=== PATIENT | female | born 1945 | race Caucasian/White ===

== ENCOUNTER 2016-08-14 11:24 | Emergency (ER) | payer OTHER ==
[~2016-08-14] VITALS: Ht 152.4 cm; Wt 78.0 kg
[2016-08-14 11:28] VITALS: Ht 152.4 cm; Wt 78.0 kg
[2016-08-14] MEDS ORDERED: ASPIRIN 324 MG CHEW ONE (11:58)
[2016-08-14 12:02] VITALS: O2SAT 98
[2016-08-14 12:04] LABS: HEMATOCRIT 44.2 % (37-47); MEAN CELL VOLUME 84.4 fL (80-100); MEAN CORPUSCULAR HEMOGLOBIN 28.6 pg (25-34); MEAN CORPUSCULAR HGB CONC 33.9 g/dl (32-36); MEAN PLATELET VOLUME 9.6 fL (7.4-10.4); PLATELET COUNT 308 K/uL (130-400); RED BLOOD COUNT 5.24 M/uL (4.2-5.4); WHITE BLOOD COUNT 8.28 K/uL (4.8-10.8)
--- NOTE | 2016-08-14 12:07 | DIAGNOSTIC IMAGING REPORT ---
SINGLE VIEW CHEST CLINICAL HISTORY: Atypical chest pain. Eructation. FINDINGS: An AP, portable, upright chest radiograph is obtained. No prior studies are available for comparison at the time of dictation. The examination is degraded by portable technique, apical lordotic positioning, and patient rotation. The heart is top normal for projection. The lungs and pleural spaces are clear. No pneumothorax is seen. The skeletal structures are osteopenic. The bony thorax is grossly intact. IMPRESSION: No active disease in the chest. Electronically signed by: Cosme Kern M.D. 08/14/2016 12:05 PM Dictated Date/Time: 08/14/2016 12:04 PM
[2016-08-14] MEDS ORDERED: ASPIRIN 81 MG CHEW PO ONE (12:15)
[2016-08-14] MEDS ORDERED: SODIUM CHLORIDE 0.9% 250ML 250 ML IV SCH (12:15)
[2016-08-14 12:22] LABS: CALCIUM 9.3 mg/dl (8.5-10.1); CREATININE 0.75 mg/dl (0.60-1.20); POTASSIUM 3.8 mmol/L (3.5-5.1)
[2016-08-14] MEDS ORDERED: LIDOCAINE HCL 2% VISC SOLN 20 ML UDC ONE (12:23)
[2016-08-14] MEDS ORDERED: ALUMINUM/MAGNESIUM SUSP 30 ML UDC ONE (12:23)
[2016-08-14] MEDS ORDERED: OMEG10007 PO (12:25)
[2016-08-14] MEDS ORDERED: LEVO50TA PO (12:25)
[2016-08-14] MEDS ORDERED: MULT-506 PO (12:25)
[2016-08-14] MEDS ORDERED: ATOR-22 PO (12:25)
[2016-08-14] MEDS ORDERED: CALC500C50 PO (12:25)
[2016-08-14] MEDS ORDERED: GI COCKTAIL PO STA (12:26)
[2016-08-14 13:04] LABS: THYROID STIMULATING HORMONE 2.88 uIu/ml (0.300-4.500)
[2016-08-14] MEDS ORDERED: PANTOprazole SOD 40 MG TAB PO STA (13:12)
[2016-08-14 14:18] LABS: URINE APPEARANCE CLEAR (CLEAR); URINE BILIRUBIN NEG (NEG); URINE COLOR YELLOW; URINE PH 7.5 (4.5-7.5); URINE SPECIFIC GRAVITY 1.007 (1.000-1.030); ZZUR CULT IF INDIC CLEAN CATCH NO
[2016-08-14 14:19] LABS: URINE EPITHELIAL CELL AUTO 0-5 /lpf (0-5); URINE NITRITE NEG (NEG); UROBILINOGEN NEG (NEG)
[2016-08-14] MEDS ORDERED: PANT40TA PO (14:26)
[2016-08-14 14:30] LABS: MANUAL MICROSCOPIC REQUIRED? NO; REVIEW REQ? NO
[2016-08-14 15:07] VITALS: BP 156/94; PULSE 95; TEMP 37.2; O2SAT 96
--- NOTE | 2016-08-14 16:03 | EMERGENCY ROOM VISIT NOTE ---
History Report prepared by Pérez: Serene Mohamud Under the Supervision of: Dr. Sean Dodd D.O. First contact with patient: 12:26 Chief Complaint: CARDIAC ASSESSMENT Stated Complaint: CHEST PAIN Nursing Triage Summary: chest pain "middle of breast bone, goes thru to the back, woke her thru the night" History of Present Illness The patient is a 71 year old female who presents to the Emergency Room with complaints of intermittent episodes of epigastric pain over the past week. Currently, she denies being in any discomfort as she states that she had relief after given Maalox and aspirin at her PCP office just prior to arrival. Since the time of onset of symptoms, patient states that she has been juan carlos pains to her epigastrium, intermittently throughout the day and and night, but it does not seem to be associated with exertion or change in position. When juan carlos a pain, it does radiate through to her mid back, but she denies radiation of pain to her neck, jaw, or down her arm, and she has not become short of breath, nauseous or diaphoretic. Patient states that she has been belching very frequently, which does seem to provide relief. Upon waking up this morning around 0700, patient's symptoms were exacerbated, so she visited her PCP. Though she had relief of symptoms after given Maalox an aspirin, she was referred to the ED for further evaluation as she was told that her EKG appeared abnormal. She denies recent fevers, chills, light headedness, dizziness , headache, lower abdominal pain, vomiting, diarrhea, urinary symptoms or swelling to her extremities. Patient has a history of GERD, thyroid disease and hyperchloremia. Source of History: patient Onset: over the past week Position: abdomen (epigastrium) Symptom Intensity: no current discomfort Timing: intermittent Modifying Factors (Relieving): other (Maalox, aspirin, belching) Associated Symptoms: + back pain, No SOB, No abdominal pain, No chills, No diaphoresis, No diarrhea, No fevers, No headache, No nausea, No urinary symptoms , No vomiting Note: Patient has been belching frequently. She denies swelling to her extremities. Review of Systems See HPI for pertinent positives & negatives. A total of 10 systems reviewed and were otherwise negative. Past Medical & Surgical Medical Problems: (1) Hypercholesterolemia (2) Thyroid disease Social History Smoking Status: Never Smoker Marital Status: Housing Status: lives with significant other Occupation Status: retired Current/Historical Medications Scheduled Atorvastatin (Lipitor), 20 MG PO HS Calcium Carbonate (Antacid) (Tums), 1 TAB PO DAILY Fish Oil ([place]-3), 1 CAP PO BID Levothyroxine Sodium (Synthroid), 50 MCG PO DAILY Multivitamin (Multivitamin), 1 TAB PO DAILY Pantoprazole (Protonix), 40 MG PO DAILY Allergies Coded Allergies: Miconazole (Unverified Allergy, Severe, RASH, 08/14/16) Physical Exam Vital Signs Date Time Temp Pulse Resp B/P Pulse Ox O2 Delivery O2 Flow Rate FiO2 08/14/16 15:07 37.2 95 12 156/94 96 08/14/16 13:17 95 156/94 96 08/14/16 13:12 94 98 08/14/16 13:07 178/100 08/14/16 13:06 165/95 08/14/16 13:04 94 12 98 08/14/16 12:59 90 17 139/70 96 08/14/16 12:54 94 20 94 08/14/16 12:49 90 18 96 08/14/16 12:44 93 16 97 08/14/16 12:39 98 14 97 08/14/16 12:34 96 14 98 08/14/16 12:29 101 17 97 08/14/16 12:28 174/86 08/14/16 12:24 95 22 98 08/14/16 12:21 105 08/14/16 12:19 93 17 97 08/14/16 12:14 101 14 95 08/14/16 12:09 101 20 95 08/14/16 12:08 170/89 08/14/16 12:02 98 Room Air 08/14/16 12:02 98 Room Air 08/14/16 12:02 37.2 107 18 167/96 98 Room Air 08/14/16 11:28 37.2 107 18 167/96 94 Room Air Physical Exam GENERAL: Patient is awake, alert, and in no acute distress. Patient is resting comfortably and showing no signs of anxiety EYES: The conjunctivae are clear. The pupils are round and reactive. EARS, NOSE, MOUTH AND THROAT: The nose is without any evidence of any deformity. Mucous membranes are moist tongue is midline NECK: The neck is nontender and supple. RESPIRATORY: Normal respiratory effort is noted there is no evidence of wheezing rhonchi or rales CARDIOVASCULAR: Regular rate and rhythm noted there no murmurs rubs or gallops normal S1 normal S2 GASTROINTESTINAL: The abdomen is soft. Bowel sounds are present in all quadrants. Abdomen is nontender MUSCULOSKELETAL/EXTREMITIES: There is no evidence of gross deformity full range of motion is noted in the hips and shoulders SKIN: There is no obvious evidence of any rash. There are no petechiae, pallor or cyanosis noted. NEUROLOGIC: Patient is awake alert and oriented x3. Medical Decision & Procedures ER Provider Diagnostic Interpretation: X-ray results as stated below per interpretation by me and the radiologist. SINGLE VIEW CHEST CLINICAL HISTORY: Atypical chest pain. Eructation. FINDINGS: An AP, portable, upright chest radiograph is obtained. No prior studies are available for comparison at the time of dictation. The examination is degraded by portable technique, apical lordotic positioning, and patient rotation. The heart is top normal for projection. The lungs and pleural spaces are clear. No pneumothorax is seen. The skeletal structures are osteopenic. The bony thorax is grossly intact. IMPRESSION: No active disease in the chest. Electronically signed by: Cosme Kern M.D. 08/14/2016 12:05 PM Dictated Date/Time: 08/14/2016 12:04 PM Laboratory Results 08/14/16 12:00 08/14/16 12:00 Test 08/14/16 11:58 08/14/16 12:00 08/14/16 13:30 Bedside Troponin I 0.000 ng/ml (0-0.045) Red Blood Count 5.24 M/uL (4.2-5.4) Mean Corpuscular Volume 84.4 fL (80-100) Mean Corpuscular Hemoglobin 28.6 pg (25-34) Mean Corpuscular Hemoglobin Concent 33.9 g/dl (32-36) RDW Standard Deviation 43.8 fL (36.4-46.3) RDW Coefficient of Variation 14.1 % (11.5-14.5) Mean Platelet Volume 9.6 fL (7.4-10.4) Anion Gap 11.0 mmol/L (3-11) Est Creatinine Clear Calc Drug Dose 64.5 ml/min Estimated GFR () 93.6 Estimated GFR (Non- 80.8 BUN/Creatinine Ratio 20.0 (10-20) Calcium Level 9.3 mg/dl (8.5-10.1) Total Bilirubin 0.3 mg/dl (0.2-1) Aspartate Amino Transf (AST/SGOT) 17 U/L (15-37) Alanine Aminotransferase (ALT/SGPT) 29 U/L (12-78) Alkaline Phosphatase 85 U/L (45-117) Total Creatine Kinase 69 U/L (26-192) Creatine Kinase MB 0.7 ng/ml (0.5-3.6) Creatine Kinase MB Ratio 1.0 (0-3.0) Total Protein 8.1 gm/dl (6.4-8.2) Albumin 4.0 gm/dl (3.4-5.0) Globulin 4.1 gm/dl (2.5-4.0) Albumin/Globulin Ratio 1.0 (0.9-2) Lipase 163 U/L (73-393) Thyroid Stimulating Hormone (TSH) 2.880 uIu/ml (0.300-4.500) Free Thyroxine 1.30 ng/dl (0.80-1.60) Urine Color YELLOW Urine Appearance CLEAR (CLEAR) Urine pH 7.5 (4.5-7.5) Urine Specific [place] 1.007 (1.000-1.030) Urine Protein NEG (NEG) Urine Glucose (UA) NEG (NEG) Urine Ketones NEG (NEG) Urine Occult Blood NEG (NEG) Urine Nitrite NEG (NEG) Urine Bilirubin NEG (NEG) Urine Urobilinogen NEG (NEG) Urine Leukocyte Esterase TRACE (NEG) Urine WBC (Auto) 0 /hpf (0-5) Urine RBC (Auto) 0-4 /hpf (0-4) Urine Hyaline Casts (Auto) 0 /lpf (0-5) Urine Epithelial Cells (Auto) 0-5 /lpf (0-5) Urine Bacteria (Auto) NEG (NEG) Laboratory results per my review. Medications Administered Medications (Trade) Dose Ordered Sig/Obdulio Route Start Time Stop Time Status Last Admin Dose Admin Aspirin 324 mg 324 mg STK-MED ONCE .ROUTE 08/14/16 11:58 08/14/16 11:59 DC 08/14/16 12:17 324 MG Sodium Chloride (Nss 250ml) 250 ml @ 0 mls/hr Q0M IV 1/12/17 12:15 08/14/16 15:33 DC 08/14/16 12:19 0 MLS/HR Lidocaine HCl (Viscous Lidocaine 2% Soln) 20 ml STK-MED ONCE .ROUTE 08/14/16 12:23 08/14/16 12:25 DC 08/14/16 12:29 20 ML Al Hydroxide/Mg Hydroxide (Maalox Susp) 30 ml STK-MED ONCE .ROUTE 08/14/16 12:23 08/14/16 12:25 DC 08/14/16 12:29 30 ML Pantoprazole Sodium (Protonix Tab) 40 mg NOW STAT PO 08/14/16 13:12 08/14/16 13:13 DC 08/14/16 13:21 40 MG ECG Indication: abdominal pain (epigastric) Rate (beats per minute): 102 Rhythm: sinus tachycardia Findings: Q waves (Inferior), no ectopy, other (No acute ST segment abnormalities.) Change: When compared to EKG from 06/17/10, rate has increased. No other change. ED Course 1226: The patient was evaluated in room C2. A complete history and physical examination were performed. 1158: Aspirin 324 mg Route was ordered. 1215: NSS 250 ml IV and Aspirin 324 mg PO were ordered. 1223: Maalox susp 30 ml Route and Lidocaine HCl 20 ml Route were ordered. 1226: GI Cocktail 24 ml PO was ordered. 1312: Protonix 40 mg PO was ordered. 1500: Upon reevaluation, the patient was doing well and appeared to be resting more comfortably after receiving the medications. I updated her on the results of her radiology reports and lab tests. Discharge instructions were also discussed at this time. She verbalized her understanding and agreement with the treatment plan, and she is now ready for disposition. Medical Decision Differential diagnosis: Etiologies such as cardiac ischemia, aortic dissection, pulmonary embolism, pneumonia, pneumothorax, musculoskeletal, infections, pericarditis, myocarditis , esophageal rupture, gastrointestinal, as well as others were entertained. Previous records from [facility] were also reviewed. The patient is a 71-year-old female to emergency Department with epigastric pain. The patient states the pain was ongoing. She would belch and the pain was relieved. The patient was seen by her primary care physician's office for further evaluation. She was found have EKG abnormalities with Q waves inferiorly. I was able to obtain an old EKG changes do not appear to be new compared to tracing. I discussed the patient's laboratory radiographic studies with her I also discussed the limitations of the emergency department workup for chest pain with her. The patient's EKG was normal despite having ongoing pain. She was treated with aspirin initially by protocol and then given Maalox and Protonix. On subsequent reevaluation she was feeling somewhat better. She did complain of some pain radiating to her back. Her LFTs and lipase were normal. I do feel at this time her condition could be consistent with gastritis. She was encouraged to rest. She was also encouraged to continue all medications as prescribed. Encouraged to return the emergency Department immediately if symptoms change worsen or the need arises otherwise follow-up with her doctor for stress testing and further testing as necessary. Impression Primary Impression: Epigastric pain Scribe Attestation The scribe's documentation has been prepared under my direction and personally reviewed by me in its entirety. I confirm that the note above accurately reflects all work, treatment, procedures, and medical decision making performed by me. Departure Information Dispostion Home / Self-Care Prescriptions Pantoprazole (Protonix) 40 Mg Tab 40 MG PO DAILY, #30 TAB Prov: Sean Dodd, DO 08/14/16 Referrals Jessica Tirado M.D. (PCP) Forms IMPORTANT VISIT INFORMATION Patient Instructions My [facility] Additional Instructions Continue all medications as prescribed. Rest and avoid any strenuous activity. Call your family to schedule a follow-up appointment. You may require other studies such as a stress test to further evaluate the cause of your pain. Return to the emergency department immediately if symptoms change worsen or the need arises. You have been prescribed Protonix. If this medication is not covered by your insurance you could try an [id number] medication that is in the same class. Ask your pharmacist for help if your unsure.
[2016-08-15] MEDS ORDERED: SODIUM CHLORIDE 0.9% 250ML 250 ML IV SCH (12:15)
[2017-01-27] MEDS ORDERED: IBUPROFEN PO (08:28)
== END 2016-08-14 15:08 | disposition home or self-care (01) ==
LOC: C.EDB 11:26 → C.EDC 15:08
DX: R10.13 Epigastric pain (principal); R00.0 Tachycardia, unspecified; K21.9 Gastro-esophageal reflux disease without esophagitis; E78.00 Pure hypercholesterolemia, unspecified; E03.9 Hypothyroidism, unspecified

== ENCOUNTER → 2016-08-28 | Outpatient (CLI) | payer OTHER ==
[~2016-08-28] MED LIST: ACET-24 PO; ASPEC325 PO; ATOR-22 PO; CALC500C50 PO; CLB200 PO; IBUPROFEN PO; LEVO50TA PO; MULT-506 PO; OMEG10007 PO; ONDA8TAB12 PO; OXYSR10 PO; PANT40TA PO; RXC5 PO
[2016-08-28 13:23] LABS: BLOOD UREA NITROGEN 14 mg/dl (7-18); BUN/CREATININE RATIO 18.3 (10-20); CALCIUM 9.1 mg/dl (8.5-10.1); CARBON DIOXIDE 25 mmol/L (21-32); CHLORIDE 105 mmol/L (98-107); CREATININE 0.75 mg/dl (0.60-1.20); GLUCOSE 108 mg/dl (70-99); POTASSIUM 3.5 mmol/L (3.5-5.1); SODIUM 139 mmol/L (136-145)
[2016-08-28 13:45] LABS: ESTIMATED AVERAGE GLUCOSE 128 mg/dl; HA1C FLAG Normal (Normal)
== END | disposition home or self-care (01) ==
LOC: C.LABPBG 10:02
PROVIDERS: ATTEND Family Medicine
DX: Z51.81 Encounter for therapeutic drug level monitoring (principal); Z79.899 Other long term (current) drug therapy; E78.5 Hyperlipidemia, unspecified; I10 Essential (primary) hypertension; Z68.33 Body mass index [BMI] 33.0-33.9, adult; R07.9 Chest pain, unspecified; K29.70 Gastritis, unspecified, without bleeding; K21.0 Gastro-esophageal reflux disease with esophagitis

== ENCOUNTER → 2016-12-31 | Outpatient (CLI) | payer OTHER ==
--- NOTE | 2016-12-31 16:29 | MAMMOGRAPHY REPORT ---
BILATERAL DIGITAL SCREENING MAMMOGRAM WITH CAD: 12/31/2016 CLINICAL HISTORY: Routine screening. Patient has no complaints. TECHNIQUE: Bilateral CC and MLO views were obtained. Current study was also evaluated with a Comput er Aided Detection (CAD) system. COMPARISON: Prior mammograms from [facility] dated 12/18/2011, 12/20/2012, 12/22/2013, 12/02. BREAST COMPOSITION: There are scattered areas of fibroglandular density in both breasts. FINDINGS: There is possible architectural distortion in the 12:00 right breast, that appears somewh at similar in pattern to prior exams. However, further evaluation with spot compression tomosynthes is views and possibly ultrasound are recommended. No other suspicious mass, architectural distortion or cluster of microcalcifications is seen bilater ally. IMPRESSION: ACR BI-RADS CATEGORY 0: INCOMPLETE EVALUATION: NEED ADDITIONAL IMAGING EVALUATION The possible architectural distortion in the 12:00 right breast needs additional imaging evaluation. The patient will be called to schedule an appointment. Approximately 10% of breast cancers are not detected with mammography. A negative mammographic repor t should not delay biopsy if a clinically suggestive mass is present. Haily Piña M.D. ay/:12/31/2016 16:20:56 Buyers' Agent: Mary Jane YEE)(Yasmine), [facility] letter sent: Addl Imaging 0 BI-RADS Code: ACR BI-RADS Category 0: Incomplete Evaluation: Need Additional Imaging Evaluation
== END | disposition home or self-care (01) ==
LOC: C.MAMM 10:13
PROVIDERS: ATTEND Family Medicine
DX: Z12.31 Encounter for screening mammogram for malignant neoplasm of breast (principal)

== ENCOUNTER → 2017-01-07 | Outpatient (CLI) | payer OTHER ==
--- NOTE | 2017-01-07 13:13 | MAMMOGRAPHY REPORT ---
UNILATERAL RIGHT DIGITAL DIAGNOSTIC MAMMOGRAM TOMOSYNTHESIS: 01/07/2017 CLINICAL HISTORY: Callback from screening mammogram for questionable right breast architectural disto rtion. TECHNIQUE: Breast tomosynthesis in addition to standard 2D mammography was performed. Right CC and MLO spot compression 2-D and tomosynthesis images were obtained. COMPARISON: Comparison is made to exams dated: 12/31/2016 mammogram - [facility], mammogram, 12/26/2014 mammogram, 12/22/2013 mammogram, 12/20/2012 mammogram, and 12/18/2011 mamm ogram - [facility]. BREAST COMPOSITION: There are scattered areas of fibroglandular density in the right breast. FINDINGS: The previously described possible architectural distortion in the right 12:00 breast does not persist on the additional views. This region has the appearance of normal fibroglandular tissue on the tomosynthesis images with no suspicious mass or architectural distortion noted. Findings are benign and compatible with normal fibroglandular tissue. IMPRESSION: ACR BI-RADS CATEGORY 2: BENIGN The questionable right breast architectural distortion does not persist on the additional views. Fin dings are benign and compatible with normal fibroglandular tissue. There is no mammographic evidence of malignancy. A 1 year screening mammogram is recommended. The patient has been verbally notified of the results. Approximately 10% of breast cancers are not detected with mammography. A negative mammographic report should not delay biopsy if a clinically suggestive mass is present. June Barnes M.D. /:01/07/2017 11:19:11 Parole Supervisor: Erika MCCARTHY(Arnoldo)(Yasmine), [facility] letter sent: Normal 1/2 BI-RADS Code: ACR BI-RADS Category 2: Benign
== END | disposition home or self-care (01) ==
LOC: C.MAMM 10:47
PROVIDERS: ATTEND Family Medicine
DX: N64.9 Disorder of breast, unspecified (principal)

== ENCOUNTER 2017-02-04 07:33 | Inpatient (IN) | payer OTHER ==
--- NOTE | 2017-01-26 17:33 | HISTORY & PHYSICAL EXAMINATION ---
DATE OF ADMISSION: 02/04/2017 PROCEDURE: Bilateral knee replacements. HISTORY OF PRESENT ILLNESS: The patient is a 71-year-old female who presents for preoperative evaluation prior to bilateral knee replacements. She states she is having pain in both of these knees for several years now, which has gradually worsened, it has now gotten to the point it is affecting her daily activities including walking, standing, going up and down steps. She has tried previous cortisone injections without relief and does ambulate with a cane daily. At this point in time, has failed conservative measures and would like to proceed with bilateral knee replacements. PAST MEDICAL HISTORY: 1. High cholesterol. 2. Hypothyroidism. ALLERGIES: 1. MONISTAT 7 CAUSES RED SPOTS ON BOTH OF HER LEGS. PRESENT MEDICATIONS: 1. Atorvastatin 20 mg daily. 2. Synthroid 0.05 mg daily. 3. Tums. PAST SURGICAL HISTORY: 1. Hysterectomy in 1991. 2. Tubal ligation in 1972. FAMILY HISTORY: Noncontributory. SOCIAL HISTORY: The patient denies a history of smoking or tobacco use. Minimal alcohol consumption. REVIEW OF SYSTEMS: Otherwise negative. Please see HPI for pertinent positives. PHYSICAL EXAMINATION: GENERAL: Pleasant 71-year-old female in no acute distress, alert and oriented x3. She is 5 foot tall, weighs 158 pounds. BMI is 31.25. HEENT: Normocephalic, atraumatic. CARDIAC: Regular rate and rhythm. No murmurs or gallops appreciated. LUNGS: Clear to auscultation. No rales or wheezes bilaterally. ABDOMEN: Soft, nontender. Bowel sounds present. EXTREMITIES: Bilateral lower extremities are neurovascularly intact. Calves are soft and nontender. DP pulse +2. Overall has varus alignment bilaterally. She has positive crepitation with motion, range of motion of the right knee is 0/5/110 and left knee 0/3/115. Both knees are ligamentously stable. IMAGING: Review of both knees show findings consistent with degenerative joint disease including joint space narrowing, subchondral sclerosis, osteophyte formations noted. Has complete loss of joint space of the medial compartment of the right knee on both AP and flexion view as well as complete loss of joint space in the medial compartment of the left knee with flexion views. IMPRESSION: 1. Bilateral knee degenerative joint disease. 2. High cholesterol. 3. Hypothyroidism. PLAN: Further care discussed with patient. At this point in time, has failed conservative measures and would like to proceed with bilateral knee replacements. We will place on aspirin 325 mg 1 tablet p.o. b.i.d. for 1 month postop. We plan on discharge to possible rehab versus nursing home facility pending insurance. Otherwise, there is no other questions or concerns.
[2017-01-27 08:29] VITALS: BMI 31.0
--- NOTE | 2017-01-27 09:03 | PAT Medication Instructions ---
Service Date Jan 27, 2017. Current Home Medication List Atorvastatin (Lipitor), 20 MG PO HS Calcium Carbonate (Antacid) (Tums), 1 TAB PO QPM Levothyroxine Sodium (Synthroid), 50 MCG PO QAM [Ibuprofen], 1 TAB PO PRN Medication Instructions For Your Scheduled Surgery - Check with surgeon for instructions: [Ibuprofen], 1 TAB PO PRN - Take the following medications the morning of surgery with a sip of water: Levothyroxine Sodium (Synthroid), 50 MCG PO QAM - Take the following medications as scheduled the night before surgery: Calcium Carbonate (Antacid) (Tums), 1 TAB PO QPM Atorvastatin (Lipitor), 20 MG PO HS If you have any questions please call us at [phone] or [phone] or [phone]
[2017-01-27 09:44] LABS: BASO % 0.3 %; BASO ABS # 0.02 K/uL (0-0.2); COMPLETE YES; EOS % 1.6 %; IG% 0.1 %; LYMPH ABS # 2.65 K/uL (1.2-3.4); MEAN CORPUSCULAR HEMOGLOBIN 27.9 pg (25-34); MEAN CORPUSCULAR HGB CONC 32.4 g/dl (32-36); MEAN PLATELET VOLUME 9.7 fL (7.4-10.4); MONO % 6.9 %; NEUT % 53.1 %; PLATELET COUNT 350 K/uL (130-400); RED BLOOD COUNT 5.23 M/uL (4.2-5.4); WHITE BLOOD COUNT 6.98 K/uL (4.8-10.8)
[2017-01-27 10:00] LABS: PROTHROMBIN TIME (PATIENT) 10.4 SECONDS (9.0-12.0); URINE APPEARANCE CLEAR (CLEAR); URINE BILIRUBIN NEG (NEG); URINE COLOR YELLOW; URINE NITRITE NEG (NEG); URINE SPECIFIC GRAVITY 1.014 (1.000-1.030); UROBILINOGEN NEG (NEG)
[2017-01-27 10:02] LABS: MANUAL MICROSCOPIC REQUIRED? NO; REVIEW REQ? NO
[2017-01-27 10:39] LABS: BUN/CREATININE RATIO 18.7 (10-20); CREATININE 0.86 mg/dl (0.60-1.20); POTASSIUM 4.5 mmol/L (3.5-5.1)
[2017-01-27 12:18] LABS: CALCIUM 9.5 mg/dl (8.5-10.1)
[2017-02-04] VITALS (10 sets, daily range): BP systolic 121–161; BP diastolic 68–83; PULSE 69–84; TEMP 36.4–37; O2SAT 94–98; Ht 152.4 cm; Wt 72.8 kg
[~2017-02-04] VITALS: Ht 152.4 cm; Wt 72.8 kg
--- NOTE | 2017-02-04 06:51 | History & Physical Bridge Note ---
H&P Re-Evaluation Bridge Note: I have examined the patient, reviewed the History & Physical and in the interval since the performance of the History & Physical I have noted the following changes of clinical significance: No changes noted
[~2017-02-04 07:33] MED LIST changes: -ACET-24 PO; +ACETAMINOPHEN 500 MG TAB PO SCH; -ASPEC325 PO; +CEFAZOLIN 2000 MG/60 ML D5W 60 ML IV SCH; -CLB200 PO; +CeleBREX 200 MG CAP PO SCH; +DEXAMETHASONE 4 MG TAB PO SCH; +FAMOTIDINE 20 MG TAB PO SCH; +GABAPENTIN 300 MG CAP PO SCH; +LACTATED RINGER'S 1000ML 1,000 ML IV SCH; +LACTATED RINGER'S 1000ML IV SCH; +METOCLOPRAMIDE HCL 10 MG TAB PO SCH; -MULT-506 PO; -OMEG10007 PO; -ONDA8TAB12 PO; -OXYSR10 PO; -PANT40TA PO; +ROPIVACAINE 5MG/ML 30 ML 150 MG, BUPIVACAINE/EPINEPHR 0.5% MPF 30 ML, KETOROLAC TROMETH... INFIL SCH; -RXC5 PO
[2017-02-04] MEDS ORDERED: FENTANYL CITRATE INJ 50 MCG/1 ML 2 ML VIAL ONE (07:58)
[2017-02-04] MEDS ORDERED: MIDAZOLAM HCL 1 MG/ML 2ML VIAL ONE ×2 (07:58→10:53)
[2017-02-04] MEDS ORDERED: ONDANSETRON INJ 2 MG/ML 2 ML VIAL ONE (07:58)
[2017-02-04] MEDS ORDERED: LIDOCAINE HCL 2% 2 ML VIAL (20MG/ML) ONE (07:58)
[2017-02-04] MEDS ORDERED: PROPOFOL IV EMULSION 10 MG/ML 20 ML VIAL IV ONE ×3 (07:58→11:45)
[2017-02-04] MEDS ORDERED: BUPIVACAINE 0.5 % 5 MG/1 ML PF 10ML VIAL ONE (08:53)
[2017-02-04] MEDS ORDERED: BUPIVACAINE/EPINEPHRINE 0.25% 1:200,000 30 ML VIAL ONE (08:53)
[2017-02-04] MEDS ORDERED: DEXAMETHASONE SOD INJ 4 MG/ML VIAL ONE (08:54)
[2017-02-04] MEDS ORDERED: POVIDONE-IODINE OP SOLN 30 ML BTL ONE (08:57)
[2017-02-04] MEDS ORDERED: ORTHO JOINT ANESTHETIC ONE (08:57)
[2017-02-04] MEDS ORDERED: BACITRACIN 50000 UNIT VIAL ONE ×2 (08:58)
[2017-02-04] MEDS: TRANEXAMIC ACID INJ 1,000 MG in SODIUM CHLORIDE 0.9% 100ML 100 ML IV SCH ×2 (10:19→15:20)
[2017-02-04] MEDS ORDERED: ATROPINE SULFATE 0.1 MG/ML 5ML SYR IV PRN (10:45)
[2017-02-04] MEDS ORDERED: ONDANSETRON INJ 2 MG/ML 2 ML VIAL IV PRN ×2 (10:45→13:00)
[2017-02-04] MEDS ORDERED: FENTANYL CITRATE INJ 50 MCG/1 ML 2 ML VIAL IV PRN (10:45)
[2017-02-04] MEDS ORDERED: PROMETHAZINE HCL INJ 6.25 MG in SODIUM CHLORIDE 0.9% 50ML 50 ML IV PRN (10:45)
[2017-02-04] MEDS ORDERED: EpHEDrine SULFATE INJ 50 MG/ML AMP IV PRN (10:45)
[2017-02-04] MEDS ORDERED: PHENYLEPHRINE 100MCG/ML 5ML SYR ONE (11:09)
--- NOTE | 2017-02-04 12:24 | [facility] Operative Report ---
Operative Report Operative Date Feb 04, 2017. 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 to right size 3 femur to tibia 11 poly-29 oval patella left size 3 femur 3 tibia 10 poly-[address] 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 Right knee bone and tissue B. Left knee bone and tissue Drains medium bore Hemovac right knee medium bore Hemovac left knee Anesthesia spinal with regional nerve block Complication(s) None Disposition Recovery Room / PACU Indications Patient presents after failing CONSERVATIVE management with physical therapy previous corticosteroid injections viscous supplementations bracing presents for bilateral total knee arthroscopy after thorough discussion of risk complications patient presents for bilateral total knee arthroplasty Description of Procedure After proper prepping and draping of the bilateral lower extremities, an anterior midline incision was made over the region of the extensor extensor mechanism of the left knee. After meticulous hemostasis was obtained and maintained in subcutaneous tissues a medial parapatellar incision was made The patella was subluxed lateralward the medial lateral gutter were cleaned from any hypertrophic synovitis and scar tissue of the distal femoral block was placed and the distal femoral osteotomy cut was made subsequently the chamfers anterior and posterior osteotomy cuts were made utilizing the 4-in-1 block the tibia was subsequently subluxed anteriorward medial and ateral meniscal remnants were excised in their entirety remnants of the anterior and posterior cruciate ligaments were excised in their entirety excellent exposure of the proximal tibia was obtained the tibial osteotomy guide was placed on the proximal tibial osteotomy cut was made once again the knee was irrigated with copious amounts of sterile saline solution the patella was subsequently everted lateralward thickened scar tissue around the patella was removed the patella was subsequently cut utilizing a freehand technique and was drilled prepared for final preparation and placement of patella socially flexion-extension gaps were checked and the equal and symmetric trials were placed to the appropriate femoral and tibial trials with poly-spacer being placed for equal flexion and extension gaps and full range of motion including extension to 0 and flexion to 140 the trial components after having been taken to recovery range of motion was subsequently removed meticulous hemostasis was obtained and maintained subsequently a knee block injection of joint cocktail including ropivacaine 0.5 % 150 mg. Bupivacaine 0.5% epinephrine 1-200,030 mL's toradol 30 mg dexamethasone 4 mg ketamine 10 mg clonidine 100 micrograms normal saline solution 30 mg was infiltrated into the soft tissues of the posterior knee medial lateral gutters and periosteal synovium special attention was paid to protect neurovascular structures at all times subsequently trial components having been removed the knee was irrigated with sterile saline solution. debris was removed the proximal tibia was subsequently prepared and was made ready for the placement of the tibial component tibial component was also cemented and tamped into position the femoral component was subsequently placed and cemented in the position the patellar component was subsequently cemented in position because hemostasis once again obtained and maintained wound having been thoroughly irrigated with debridement and debridement lavage was performed as well as a medial parapatellar incision closed with #1 Vicryl in interrupted fashion subcutaneous was closed with #2 Vicryl skin was closed with skin clips Next, an anterior midline incision was made over the region of the extensor extensor mechanism of the right knee. After meticulous hemostasis was obtained and maintained in subcutaneous tissues a medial parapatellar incision was made The patella was subluxed lateralward the medial lateral gutter were cleaned from any hypertrophic synovitis and scar tissue of the distal femoral block was placed and the distal femoral osteotomy cut was made subsequently the chamfers anterior and posterior osteotomy cuts were made utilizing the 4-in-1 block the tibia was subsequently subluxed anteriorward medial and ateral meniscal remnants were excised in their entirety remnants of the anterior and posterior cruciate ligaments were excised in their entirety excellent exposure of the proximal tibia was obtained the tibial osteotomy guide was placed on the proximal tibial osteotomy cut was made once again the knee was irrigated with copious amounts of sterile saline solution the patella was subsequently everted lateralward thickened scar tissue around the patella was removed the patella was subsequently cut utilizing a freehand technique and was drilled prepared for final preparation and placement of patella socially flexion-extension gaps were checked and the equal and symmetric trials were placed to the appropriate femoral and tibial trials with poly-spacer being placed for equal flexion and extension gaps and full range of motion including extension to 0 and flexion to 140 the trial components after having been taken to recovery range of motion was subsequently removed meticulous hemostasis was obtained and maintained subsequently a knee block injection of joint cocktail including ropivacaine 0.5 % 150 mg. Bupivacaine 0.5% epinephrine 1-200,030 mL's toradol 30 mg dexamethasone 4 mg ketamine 10 mg clonidine 100 micrograms normal saline solution 30 mg was infiltrated into the soft tissues of the posterior knee medial lateral gutters and periosteal synovium special attention was paid to protect neurovascular structures at all times subsequently trial components having been removed the knee was irrigated with sterile saline solution. debris was removed the proximal tibia was subsequently prepared and was made ready for the placement of the tibial component tibial component was also cemented and tamped into position the femoral component was subsequently placed and cemented in the position the patellar component was subsequently cemented in position because hemostasis once again obtained and maintained wound having been thoroughly irrigated with debridement and debridement lavage was performed as well as a medial parapatellar incision closed with #1 Vicryl in interrupted fashion subcutaneous was closed with #2 Vicryl skin was closed with skin clips.. PA-C was necessary for prepping and drapping as well as wound closure of deep fascia Sub cutaneous tissue and skin and was necessary for the case. A sterile compressive dressings were placed, patient was taken to recovery in stable condition of report dictated by Rishi I attest to the content of the Intraoperative Record and any orders documented therein. Any exceptions are noted below. I attest to the content of the Intraoperative Record and any orders documented therein. Any exceptions are noted below.
[2017-02-04] MEDS ORDERED: ZOLPIDEM TARTRATE 5 MG TAB PO PRN (13:00)
[2017-02-04] MEDS ORDERED: ALUMINUM/MAGNESIUM/SIMETH (MAALOX MAX) 30 ML UDC PO PRN (13:00)
[2017-02-04] MEDS ORDERED: MoRPHine SULFATE 2 MG/ML CARP IV PRN ×2 (13:00→15:00)
[2017-02-04] MEDS ORDERED: BISACODYL 10 MG SUPP PR PRN (13:00)
[2017-02-04] MEDS ORDERED: KETOROLAC TROMETHAMINE 15 MG/ML VIAL IV. PRN (13:00)
[2017-02-04] MEDS ORDERED: SOD PHOSPHATE/SOD BIPHOSPHATE ENEMA 132 ML BTL PR PRN (13:00)
[2017-02-04] MEDS ORDERED: MAGNESIUM HYDROXIDE SUSP 30 ML UDC PO PRN (13:00)
--- NOTE | 2017-02-04 13:35 | Anesthesiology Progress Note ---
Anesthesia Post Op Note Date & Time Feb 04, 2017 at 13:35 Vital Signs Pain Intensity: 0 Vital Signs Past 12 Hours Date Time Temp Pulse Resp B/P (MAP) Pulse Ox O2 Delivery O2 Flow Rate FiO2 02/04/17 13:25 36.2 80 18 111/61 96 Nasal Cannula 2 02/04/17 13:15 80 17 123/63 96 Nasal Cannula 2 02/04/17 13:05 86 17 119/60 98 Nasal Cannula 2 02/04/17 12:59 36.9 84 16 115/68 94 Nasal Cannula 2 02/04/17 08:20 37 82 20 161/83 96 Room Air Notes Mental Status: alert / awake / arousable, participated in evaluation Pt Amnestic to Procedure: Yes Nausea / Vomiting: adequately controlled Pain: adequately controlled Airway Patency, RR, SpO2: stable & adequate BP & HR: stable & adequate Hydration State: stable & adequate Neuraxial Anesthesia: was administered, sensory block is resolving Anesthetic Complications: no major complications apparent
--- NOTE | 2017-02-04 13:37 | DIAGNOSTIC IMAGING REPORT ---
LEFT KNEE 1 OR 2 VIEWS ROUTINE HISTORY: 71-year-old female status post left knee arthroplasty. History of knee joint degenerative disease. COMPARISON: None available. TECHNIQUE: Portable AP and crosstable lateral views of the left knee. FINDINGS: The patient is status post total knee arthroplasty with patellar resurfacing. Midline skin jorge are seen as well as postsurgical soft tissue swelling with subcutaneous and deep tissue air about the knee. No periprosthetic fracture or retained radiopaque foreign body is identified. Multiple tubing devices overlie the soft tissues. IMPRESSION: Status post left knee total joint arthroplasty and patellar resurfacing without complication. Electronically signed by: Jonathan Zurita 02/04/2017 1:36 PM Dictated Date/Time: 02/04/2017 1:34 PM
--- NOTE | 2017-02-04 13:42 | DIAGNOSTIC IMAGING REPORT ---
RIGHT KNEE 1 OR 2 VIEWS ROUTINE CLINICAL HISTORY: Degenerative arthritis COMPARISON: None. DISCUSSION: There are postsurgical changes of a total right knee arthroplasty and patellar resurfacing. The femoral and tibial components appear well seated. Overlying skin jorge and surgical drains are evident. There is air within the soft tissues consistent with recent surgery. IMPRESSION: Postsurgical changes of a total right knee arthroplasty. Electronically signed by: Neo Das M.D. 02/04/2017 1:41 PM Dictated Date/Time: 02/04/2017 1:40 PM
[2017-02-04] MEDS ORDERED: MoRPHine SULFATE 4 MG/ML 1 ML CARP\\VIAL IV PRN (15:00)
[2017-02-04] MEDS ORDERED: MoRPHine SULFATE 10 MG/ML CARP/VIAL IV PRN (15:00)
[2017-02-04] MEDS: D5W AND 1/2NSS + 20MEQ KCL 1,000 ML IV SCH (15:31)
[2017-02-04] MEDS: ACETAMINOPHEN 500 MG TAB PO SCH ×2 (15:32→21:03)
[2017-02-04] MEDS: CEFAZOLIN IV 1,000 MG in DEXTROSE 5% 50ML 50 ML IV SCH (18:04)
[2017-02-04] MEDS: OXYCODONE HCL 10 MG TABCR (OXYCONTIN) PO SCH (21:03)
[2017-02-04] MEDS: SENNA 8.6 MG TAB PO SCH (21:04)
[2017-02-04] MEDS: ASPIRIN 325 MG ECTAB PO SCH (21:04)
[2017-02-04] MEDS: ATORVASTATIN 20 MG TAB PO SCH (21:05)
[2017-02-04] MEDS: DOCUSATE SODIUM 100 MG CAP PO SCH (21:05)
[2017-02-04] MEDS: CALCIUM CARBONATE 500 MG CHEWABLE PO SCH (21:05)
[2017-02-05] VITALS (7 sets, daily range): BP systolic 102–149; BP diastolic 58–73; PULSE 69–81; TEMP 36.4–36.9; O2SAT 94–100
[2017-02-05] MEDS: D5W AND 1/2NSS + 20MEQ KCL 1,000 ML IV SCH ×2 (01:31→11:25)
[2017-02-05] MEDS: CEFAZOLIN IV 1,000 MG in DEXTROSE 5% 50ML 50 ML IV SCH (01:32)
[2017-02-05] MEDS: ACETAMINOPHEN 500 MG TAB PO SCH ×3 (05:35→21:51)
[2017-02-05] MEDS: LEVOTHYROXINE 50 MCG TAB PO SCH (05:35)
[2017-02-05 05:45] LABS: HEMATOCRIT 35.8 % (37-47); MEAN CELL VOLUME 85.6 fL (80-100); MEAN CORPUSCULAR HEMOGLOBIN 28.7 pg (25-34); MEAN CORPUSCULAR HGB CONC 33.5 g/dl (32-36); MEAN PLATELET VOLUME 9.8 fL (7.4-10.4); PLATELET COUNT 247 K/uL (130-400); RED BLOOD COUNT 4.18 M/uL (4.2-5.4); WHITE BLOOD COUNT 14.74 K/uL (4.8-10.8)
[2017-02-05 05:54] LABS: PROTHROMBIN TIME (PATIENT) 10.7 SECONDS (9.0-12.0)
[2017-02-05 06:13] LABS: BUN/CREATININE RATIO 19.3 (10-20); CALCIUM 8.4 mg/dl (8.5-10.1); CREATININE 0.65 mg/dl (0.60-1.20); POTASSIUM 4.5 mmol/L (3.5-5.1)
--- NOTE | 2017-02-05 07:16 | Orthopedic Progress Note ---
Orthopedic Progress Note Date of Service Feb 05, 2017. Subjective Post OP Day: 1 (POD #1 s/p Bilateral TKAs) Reports: feeling well, pain controlled w PO medications, Denies: complaints, chest pain, SOB, nausea / vomiting, light headedness, calf pain Objective calves soft nontender, N/V intact, capillary refill less than 2 sec., dressing C /D/I, A&O x3, toes mobile Date Time Temp Pulse Resp B/P (MAP) Pulse Ox O2 Delivery O2 Flow Rate FiO2 02/05/17 03:10 36.4 69 14 119/69 (86) 96 Room Air 02/04/17 23:27 36.5 74 14 124/73 (90) 94 Room Air 02/04/17 19:47 Room Air 02/04/17 19:11 36.8 84 17 131/80 (97) 94 Room Air 02/04/17 17:16 36.5 71 17 123/78 (93) 97 Room Air 02/04/17 16:01 36.4 69 18 121/72 (88) 95 Nasal Cannula 1.0 02/04/17 15:17 97 Room Air 02/04/17 15:01 36.8 76 18 128/75 (92) 98 Nasal Cannula 1.0 02/04/17 14:17 98 Nasal Cannula 2.0 02/04/17 14:16 36.7 72 16 123/68 (86) 98 Nasal Cannula 2.0 02/04/17 14:12 98 Nasal Cannula 2.0 02/04/17 13:45 73 13 109/57 96 Nasal Cannula 2 02/04/17 13:35 70 13 106/58 97 Nasal Cannula 2 02/04/17 13:25 36.2 80 18 111/61 96 Nasal Cannula 2 02/04/17 13:15 80 17 123/63 96 Nasal Cannula 2 02/04/17 13:05 86 17 119/60 98 Nasal Cannula 2 02/04/17 12:59 36.9 84 16 115/68 94 Nasal Cannula 2 02/04/17 08:20 37 82 20 161/83 96 Room Air Laboratory Results 24 Hours: Test 02/05/17 05:32 Hematocrit 35.8 % Hemoglobin 12.0 g/dL Prothromb Time International Ratio 1.0 Prothrombin Time 10.7 SECONDS Assessment & Plan Assessment: POD #1 s/p Bilateral TKAs -PT/OT -dvt proph with KENNETH/SCD/ASA -patient undecided on d/c home vs rehab. will see how she progresses today and tomorrow. PAST MEDICAL HISTORY: 1. High cholesterol. 2. Hypothyroidism. Discharge Planning Discharge Planning: uncertain DVT Prophylaxis: TEDs, SCDs, ASA Therapy: Physical Therapy
--- NOTE | 2017-02-05 08:22 | Anesthesiology Progress Note ---
Anesthesia Post Op Note Date & Time Feb 05, 2017 at 08:21 Vital Signs Pain Intensity: 1.0 Vital Signs Past 12 Hours Date Time Temp Pulse Resp B/P (MAP) Pulse Ox O2 Delivery O2 Flow Rate FiO2 02/05/17 03:10 36.4 69 14 119/69 (86) 96 Room Air 02/04/17 23:27 36.5 74 14 124/73 (90) 94 Room Air Notes Mental Status: alert / awake / arousable, participated in evaluation Pt Amnestic to Procedure: Yes Nausea / Vomiting: adequately controlled Pain: adequately controlled Airway Patency, RR, SpO2: stable & adequate BP & HR: stable & adequate Hydration State: stable & adequate Neuraxial Anesthesia: sensory block resolved Anesthetic Complications: no major complications apparent
[2017-02-05] MEDS: MULTIVITAMIN TAB PO SCH (08:41)
[2017-02-05] MEDS: DOCUSATE SODIUM 100 MG CAP PO SCH ×2 (08:41→21:55)
[2017-02-05] MEDS: ASPIRIN 325 MG ECTAB PO SCH ×2 (08:41→21:54)
[2017-02-05] MEDS: PANTOprazole SOD 40 MG TAB PO SCH (08:41)
[2017-02-05] MEDS: OXYCODONE HCL 10 MG TABCR (OXYCONTIN) PO SCH ×2 (08:45→21:50)
[2017-02-05] MEDS: OXYCODONE HCL IR 5 MG TAB (IMMEDIATE RELEASE) PO PRN ×2 (12:19→21:51)
--- NOTE | 2017-02-05 13:14 | Discharge Instructions ---
Discharge Instructions Date of Service Feb 05, 2017. Admission Reason for Admission: Bilateral Knee Degenerative Joint Disease Discharge Discharge Diagnosis / Problem: Bilateral Total Knee Replacements Discharge Goals Goal(s): Decrease discomfort, Improve function, Increase independence Activity Recommendations Activity Limitations: as noted below Weightbearing Status: Left weightbearing (as tolerated), Right weightbearing ( as tolerated) . Instructions / Follow-Up Instructions / Follow-Up ACTIVITY RECOMMENDATIONS: SELF CARE INSTRUCTIONS AFTER TOTAL KNEE REPLACEMENT A. You may need to continue a physical therapy program after discharge from the hospital. There are several options available to you. Your doctor will assist you in selecting the best one for you. 1. An out-patient facility 2 to 3 times a week for therapy or home therapy. 2. Continue working on all exercises taught to you in the hospital. Your goals should be to increase bending of your knee to 90 degrees and beyond and to fully straighten your knee. B. You may progress at your own pace from walking with a walker or crutches to a cane; then to no assistive devices. C. Make walking a part of your daily routine. Be up as much as comfortable with rest periods throughout the day. Rest with leg elevation is very important. Use the ice wrap frequently for the first 3-4 weeks. D. There are no restrictions on activities. You may ride in a car, shop, participate in automotive glass technician and all social activities. E. Wear the long elastic stockings (KENNETH hose) 20 hours a day for 2 weeks after surgery. They can be removed several times a day for laundering and for a bath. F. You may shower, no tub baths until cleared by your doctor. SPECIAL CARE INSTRUCTIONS: VERY IMPORTANT TO READ AND REVIEW A. There are a few signs you need to watch for after you are home. Call [facility] if you notice any of the followin. Increased severe knee pain. Some pain is expected especially when you exercise. 2. Increased swelling in your leg or knee; pain or swelling of the calf muscle in either lower leg. 3. Any fluid drainage from the incision. 4. Shortness of breath or chest pain. B. Please call [facility] at if you have any concerns or questions about your operation or recovery. The doctor or his nurse will return your call promptly. C. You must take antibiotics before dental work, bladder, bowel or other surgery. Your doctor will provide you with a permanent care to carry describing this precaution. IMPORTANT: * REMEMBER TO TAKE ASPIRIN, 81 MG, TWICE DAILY FOR 4 WEEKS UNLESS OTHERWISE DIRECTED. THIS IS YOUR BLOOD THINNER. * HIGH RISK PATIENTS MAY BE PRESCRIBED A STRONGER BLOOD THINNER. THIS WILL BE PROVIDED AT DISCHARGE. * CALL IF INCREASED PAIN, REDNESS, DRAINAGE OR FEVER GREATER THAT 101. * WEAR KENNETH HOSE 20 HOURS PER DAY FOR 2 WEEKS. * YOU MAY HAVE A LARGE BAND-AID LIKE DRESSING (SILVERON). THIS WILL REMAIN ON YOUR INCISION FOR 7 DAYS, THEN CAN BE REMOVED. IF INCISION IS LEAKING THROUGH DRESSING, CALL THE OFFICE . FOLLOW UP VISIT: If appointment is not already scheduled: Please call [facility] to make a follow-up appointment for 2 weeks after your surgery at . Current Hospital Diet Patient's current hospital diet: Regular Diet Discharge Diet Recommended Diet: Regular Diet Procedures Procedures Performed: Bilateral Total Knee Arthroplasty Pending Studies Studies pending at discharge: no Medical Emergencies . Who to Call and When: Medical Emergencies: If at any time you feel your situation is an emergency, please call 911 immediately. . Non-Emergent Contact Non-Emergency issues call your: Primary Care Provider, Surgeon . "Provider Documentation" section prepared by Reilly Don. . VTE Core Measure Inpt VTE Proph given/why not?: Other Anticoagulation (ASA 325mg by mouth twice daily x 4 weeks), T.E.D. Stockings, SCD's [place] Drug Monitoring Program Search Results: patient reviewed within database, no issues identified
[2017-02-05] MEDS: SENNA 8.6 MG TAB PO SCH (21:52)
[2017-02-05] MEDS: CALCIUM CARBONATE 500 MG CHEWABLE PO SCH (21:55)
[2017-02-05] MEDS: ATORVASTATIN 20 MG TAB PO SCH (21:56)
[2017-02-05] MEDS: CeleBREX 200 MG CAP PO SCH (21:56)
[2017-02-06] MEDS: ACETAMINOPHEN 500 MG TAB PO SCH ×3 (05:42→22:22)
[2017-02-06] MEDS: LEVOTHYROXINE 50 MCG TAB PO SCH (05:42)
--- NOTE | 2017-02-06 07:20 | Orthopedic Progress Note ---
Orthopedic Progress Note Date of Service Feb 06, 2017. Subjective Post OP Day: 2 Reports: feeling well, pain controlled w PO medications, Denies: complaints, chest pain, SOB, nausea / vomiting, light headedness, calf pain Objective calves soft nontender, N/V intact, capillary refill less than 2 sec., dressing C /D/I (silverlon intact), A&O x3, toes mobile Date Time Temp Pulse Resp B/P (MAP) Pulse Ox O2 Delivery O2 Flow Rate FiO2 02/06/17 00:45 Room Air 02/05/17 22:45 36.9 71 16 136/73 (94) 99 Room Air 02/05/17 16:46 81 97 02/05/17 15:45 Room Air 02/05/17 14:59 36.6 75 17 102/58 (73) 94 Room Air 02/05/17 12:00 36.5 02/05/17 12:00 36.5 69 18 120/70 (87) 100 Room Air 02/05/17 08:25 98 Room Air 02/05/17 08:20 36.4 72 18 120/58 (78) 98 Room Air 02/05/17 07:46 Room Air Assessment & Plan Assessment: POD #2 s/p Bilateral TKAs -PT/OT -dvt proph with KENNETH/SCD/ASA -patient slow progress with PT yesterday, will likely keep until Thursday before sending home. would like to use [facility]. PAST MEDICAL HISTORY: 1. High cholesterol. 2. Hypothyroidism. Discharge Planning Discharge Planning: home with home health DVT Prophylaxis: TEDs, SCDs, ASA Therapy: Physical Therapy
[2017-02-06 07:43] VITALS: BP 120/70; PULSE 68; TEMP 36.6; O2SAT 100
[2017-02-06 07:47] VITALS: O2SAT 100
[2017-02-06] MEDS: OXYCODONE HCL IR 5 MG TAB (IMMEDIATE RELEASE) PO PRN (08:36)
[2017-02-06] MEDS: OXYCODONE HCL 10 MG TABCR (OXYCONTIN) PO SCH ×2 (09:15→22:22)
[2017-02-06] MEDS: CeleBREX 200 MG CAP PO SCH ×2 (09:15→22:22)
[2017-02-06] MEDS: ASPIRIN 325 MG ECTAB PO SCH ×2 (09:16→22:22)
[2017-02-06] MEDS: DOCUSATE SODIUM 100 MG CAP PO SCH ×2 (09:16→22:22)
[2017-02-06] MEDS: PANTOprazole SOD 40 MG TAB PO SCH (09:16)
[2017-02-06] MEDS: MULTIVITAMIN TAB PO SCH (09:17)
[2017-02-06 10:35] VITALS: BP 138/73
[2017-02-06 12:00] VITALS: BP 148/72; PULSE 72; TEMP 36.6; O2SAT 99
[2017-02-06 14:58] VITALS: BP 128/72; PULSE 77; TEMP 36.9; O2SAT 98
[2017-02-06] MEDS: CALCIUM CARBONATE 500 MG CHEWABLE PO SCH (22:22)
[2017-02-06] MEDS: ATORVASTATIN 20 MG TAB PO SCH (22:22)
[2017-02-06] MEDS: SENNA 8.6 MG TAB PO SCH (22:23)
[2017-02-07 00:01] VITALS: BP 130/69; PULSE 87; TEMP 36.8; O2SAT 95
[2017-02-07] MEDS: LEVOTHYROXINE 50 MCG TAB PO SCH (06:02)
[2017-02-07] MEDS: ACETAMINOPHEN 500 MG TAB PO SCH ×2 (06:03→13:14)
[2017-02-07 07:19] VITALS: BP 119/68; PULSE 85; TEMP 36.9; O2SAT 95
--- NOTE | 2017-02-07 08:01 | Orthopedic Progress Note ---
Orthopedic Progress Note Date of Service Feb 07, 2017. Subjective Post OP Day: 3 Reports: feeling well Objective calves soft nontender, N/V intact, dressing C/D/I (Silverlons in place), toes mobile Date Time Temp Pulse Resp B/P (MAP) Pulse Ox O2 Delivery O2 Flow Rate FiO2 02/07/17 07:19 36.9 85 18 119/68 (85) 95 Room Air 02/07/17 00:21 Room Air 02/07/17 00:01 36.8 87 14 130/69 (89) 95 Room Air 02/06/17 16:40 Room Air 02/06/17 14:58 36.9 77 18 128/72 (90) 98 Room Air 02/06/17 12:00 36.6 72 20 148/72 (97) 99 Room Air Assessment & Plan Assessment: POD #3 s/p Bilateral TKAs -PT/OT -dvt proph with KENNETH/SCD/ASA -patient slow progress with PT yesterday, will likely keep until Thursday before sending home. would like to use [facility]. PAST MEDICAL HISTORY: 1. High cholesterol. 2. Hypothyroidism. Discharge Planning Discharge Planning: home with home health DVT Prophylaxis: TEDs, SCDs, ASA Therapy: Physical Therapy
[2017-02-07] MEDS ORDERED: CLB200 PO (08:03)
[2017-02-07] MEDS ORDERED: OXYSR10 PO (08:03)
[2017-02-07] MEDS ORDERED: RXC5 PO (08:03)
[2017-02-07] MEDS ORDERED: ASPEC325 PO (08:03)
[2017-02-07] MEDS ORDERED: ACET-24 PO (08:03)
[2017-02-07] MEDS ORDERED: ONDA8TAB12 PO (08:03)
[2017-02-07] MEDS: DOCUSATE SODIUM 100 MG CAP PO SCH (08:34)
[2017-02-07] MEDS: CeleBREX 200 MG CAP PO SCH (08:34)
[2017-02-07] MEDS: PANTOprazole SOD 40 MG TAB PO SCH (08:34)
[2017-02-07] MEDS: OXYCODONE HCL 10 MG TABCR (OXYCONTIN) PO SCH (08:35)
[2017-02-07] MEDS: MULTIVITAMIN TAB PO SCH (08:35)
[2017-02-07] MEDS: ASPIRIN 325 MG ECTAB PO SCH (08:35)
[2017-02-07 11:07] VITALS: BP 119/68; PULSE 85; TEMP 36.9; O2SAT 95
--- NOTE | 2017-02-08 11:40 | Discharge Summary ---
Orthopedic Discharge Summary Admission Date/Reason Feb 04, 2017 at 08:10 Bilateral Knee Degenerative Joint Disease. Discharge Date/Disposition Feb 07, 2017 Home with services Diagnosis Principal Diagnosis: Bilateral Knee osteoarthritis Procedure(s) Performed Bilateral Total Knee Replacements with Lloyd shrestha 2 right size 3 femur to tibia 11 poly-29 oval patella left size 3 femur 3 tibia 10 poly-29 oval patella Consultations NONE Medication Reconciliation New Medications: Ondansetron Hcl (Zofran) 8 Mg Tab 8 MG PO Q8 PRN for Nausea or Vomiting, #20 TAB Acetaminophen (Sb Non-Aspirin Extra Stre) 500 Mg Tab 1000 MG PO Q8 for 30 Days, TAB Aspirin (Aspirin) 325 Mg Ectab 325 MG PO BID for 30 Days Celecoxib (Celebrex) 200 Mg Cap 200 MG PO BID, #60 CAP Oxycodone HCl (Oxycontin) 10 Mg Tabcr 10 MG PO Q12, #20 Oxycodone HCl (Oxycodone HCl) 5 Mg Tab 5-10 MG PO Q4H PRN for Pain, #60 TAB Continued Medications: Atorvastatin (Lipitor) 20 Mg Tab 20 MG PO HS, TAB Calcium Carbonate (Antacid) (Tums) 500 Mg Chw 1 TAB PO QPM Levothyroxine Sodium (Synthroid) 50 Mcg Tab 50 MCG PO QAM, TAB Discontinued Medications: [Ibuprofen] () 1 TAB PO PRN Admission Physical Exam As per Admitting History & Physical. Hospital Course Patient was a same day admission after undergoing a successful bilateral TKA. She tolerated the procedure well. Post-operatively, her activity was progressed and well tolerated. Please refer to daily progress notes and PT notes for complete details. After exam on 02/07/17, patient felt to be stable for discharge home with HHPT. Patient will f/u in the office in 2 weeks for further evaluation including x-rays and incision check, sooner if having any issues or concerns. Below are pertinent labs/studies during their hospital stay: Last Resulted CBC 02/05/17 05:32 Last Resulted BMP 02/05/17 05:32 Last Vital Signs Documentation Date Time Temp Pulse Resp B/P (MAP) Pulse Ox O2 Delivery O2 Flow Rate FiO2 02/07/17 11:07 36.9 85 18 95 Room Air 02/07/17 07:19 119/68 (85) 02/04/17 16:01 1.0 Discharge Instructions ACTIVITY RECOMMENDATIONS: SELF CARE INSTRUCTIONS AFTER TOTAL KNEE REPLACEMENT A. You may need to continue a physical therapy program after discharge from the hospital. There are several options available to you. Your doctor will assist you in selecting the best one for you. 1. An out-patient facility 2 to 3 times a week for therapy or home therapy. 2. Continue working on all exercises taught to you in the hospital. Your goals should be to increase bending of your knee to 90 degrees and beyond and to fully straighten your knee. B. You may progress at your own pace from walking with a walker or crutches to a cane; then to no assistive devices. C. Make walking a part of your daily routine. Be up as much as comfortable with rest periods throughout the day. Rest with leg elevation is very important. Use the ice wrap frequently for the first 3-4 weeks. D. There are no restrictions on activities. You may ride in a car, shop, participate in supervisor tubing and all social activities. E. Wear the long elastic stockings (KENNETH hose) 20 hours a day for 2 weeks after surgery. They can be removed several times a day for laundering and for a bath. F. You may shower, no tub baths until cleared by your doctor. SPECIAL CARE INSTRUCTIONS: VERY IMPORTANT TO READ AND REVIEW A. There are a few signs you need to watch for after you are home. Call [facility] if you notice any of the followin. Increased severe knee pain. Some pain is expected especially when you exercise. 2. Increased swelling in your leg or knee; pain or swelling of the calf muscle in either lower leg. 3. Any fluid drainage from the incision. 4. Shortness of breath or chest pain. B. Please call [facility] at if you have any concerns or questions about your operation or recovery. The doctor or his nurse will return your call promptly. C. You must take antibiotics before dental work, bladder, bowel or other surgery. Your doctor will provide you with a permanent care to carry describing this precaution. IMPORTANT: * REMEMBER TO TAKE ASPIRIN, 81 MG, TWICE DAILY FOR 4 WEEKS UNLESS OTHERWISE DIRECTED. THIS IS YOUR BLOOD THINNER. * HIGH RISK PATIENTS MAY BE PRESCRIBED A STRONGER BLOOD THINNER. THIS WILL BE PROVIDED AT DISCHARGE. * CALL IF INCREASED PAIN, REDNESS, DRAINAGE OR FEVER GREATER THAT 101. * WEAR KENNETH HOSE 20 HOURS PER DAY FOR 2 WEEKS. * YOU MAY HAVE A LARGE BAND-AID LIKE DRESSING (SILVERON). THIS WILL REMAIN ON YOUR INCISION FOR 7 DAYS, THEN CAN BE REMOVED. IF INCISION IS LEAKING THROUGH DRESSING, CALL THE OFFICE . FOLLOW UP VISIT: If appointment is not already scheduled: Please call [facility] to make a follow-up appointment for 2 weeks after your surgery at .
== END 2017-02-07 14:28 | disposition home health service (06) | DRG 462 ==
LOC: C.ACU 07:33 → C.3E 08:10 → ENRESERV 13:28
PROVIDERS: ADMIT Orthopaedic Surgery; ATTEND Orthopaedic Surgery
PROC: 0SRD0J9 Replacement of Left Knee Joint with Synthetic Substitute, Cemented, Open Approach (ICD-10-PCS; principal; 2017-02-04 09:45)
PROC: 0SRC0J9 Replacement of Right Knee Joint with Synthetic Substitute, Cemented, Open Approach (ICD-10-PCS; principal; 2017-02-04 09:45)
DX: M17.0 Bilateral primary osteoarthritis of knee (principal); M21.162 Varus deformity, not elsewhere classified, left knee; M21.161 Varus deformity, not elsewhere classified, right knee; E78.00 Pure hypercholesterolemia, unspecified; E03.9 Hypothyroidism, unspecified; K21.9 Gastro-esophageal reflux disease without esophagitis; Z87.891 Personal history of nicotine dependence; Z79.899 Other long term (current) drug therapy